=== PATIENT | female | born 1990 | race Caucasian/White ===

== ENCOUNTER 2021-08-08 21:03 | Emergency (ER) | payer SELFPAY ==
[2021-08-08 21:04] VITALS: BP 218/120; PULSE 85; RESP 18; TEMP 36.8; O2SAT 97; BMI 28.9
[2021-08-08 21:42] VITALS: BP 168/133; PULSE 94; RESP 17; TEMP 37.1; O2SAT 98
--- NOTE | 2021-08-08 22:09 | CT_ITS ---
EXAM: CT ABDOMEN AND PELVIS WITHOUT INTRAVENOUS CONTRAST CLINICAL INDICATION: Right flank pain TECHNIQUE: Helically acquired images were obtained of the abdomen and pelvis without intravenous contrast. This CT exam was performed using one or more of the following dose reduction techniques: automated exposure control, adjustment of the mA and/or kV according to patient size, and/or use of iterative reconstruction technique. This report was created using [employer] report generation technology. COMPARISON: None. FINDINGS: LOWER THORAX: Unremarkable. Lung bases are clear. No cardiomegaly. No significant pericardial effusion. ABDOMEN: LIVER: Unremarkable. Homogeneous. GALLBLADDER AND BILE DUCTS: Unremarkable. No calcified gallstones. No gallbladder distention or wall edema. No intra- or extrahepatic biliary ductal dilation. PANCREAS: Unremarkable. No focal cystic mass. SPLEEN: Unremarkable. Normal size without focal cystic or solid mass. ADRENALS: Unremarkable. No nodules. KIDNEYS AND URETERS: Moderate right hydronephrosis and perinephric stranding hydroureter. Calculus of anterior renal calyceal infundibulum measures up to 1.3 cm. Normal renal size and position. STOMACH AND BOWEL: Unremarkable. No stomach or bowel distention. No focal inflammatory change. PELVIS: APPENDIX: No evidence of acute appendicitis. BLADDER: Urinary bladder is not well-distended, bladder wall thickening cannot be excluded. REPRODUCTIVE: Unremarkable as visualized. No mass. ABDOMEN and PELVIS: INTRAPERITONEAL SPACE: Unremarkable. No ascites or other fluid collection. No free air. BONES/JOINTS: Unremarkable. No suspicious lytic or blastic abnormality. SOFT TISSUES: Unremarkable. No discrete abdominal or pelvic wall hernia. VASCULATURE: Unremarkable. Abdominal aorta is non-dilated. LYMPH NODES: Unremarkable. No enlarged lymph nodes. CT/Abdomen/Pelvis without Cont IMPRESSION: Moderate right hydronephrosis and perinephric stranding hydroureter. No ureteral calculi seen. May represent a passed calculus versus urinary tract infection. Electronically Signed: Abel Mora MD ([place]) at 23:12 EST , Service support ,
[2021-08-08 22:20] LABS: Absolute Neutrophil Count 8.1 X10^3/uL (2.0-7.7); Basophil# 0.06 X10^3/uL; Basophil% 0.6 % (0-1); Eosinophil# 0.03 X10^3/uL; Eosinophils% 0.3 % (0-5); Hematocrit 43.3 % (37-47); Hemoglobin 14.4 g/dL (12.0-15.0); Lymphocyte % 12.1 % (19-41); Mean Corp Hgb Conc 33.3 g/dL (32-36); Mean Corpuscular Hgb 30.4 pg (27.0-32.0); Mean Corpuscular Volume 91.4 fL (81-99); Mean Platelet Vol. 9.1 fl (6.2-12.0); Monocyte# 0.51 X10^3/uL; Monocyte% 5.2 % (0-10); NRBC Flagged by Analyzer 0 % (0-5); Neutrophil # 8.06 X10^3/uL (2.7-7.7); Neutrophil % 81.6 % (47-70); Platelet Count 384 K/mm3 (150-450); RBC Distribution Width CV 11.5 % (11.6-14.6); RBC Distribution Width SD 38.9 fl (35.1-43.9); Red Blood Count 4.74 M/mm3 (4.2-5.4); White Blood Count 9.9 K/mm3 (4.4-11.0)
[2021-08-08 22:35] LABS: ALB/GLOB Ratio 0.9 RATIO (0.9-2.4); AST(SGOT) 18 U/L (15-37); Alanine Aminotransfer ALT/SGPT 25 U/L (13-56); Albumin, Serum 4.3 g/dL (3.2-5.0); Alkaline Phosphatase 84 U/L (45-117); Anion Gap 11 (5-15); BUN 15 mg/dL (7-18); Calcium,Total 9.7 mg/dL (8.5-10.1); Chloride 100 mmol/L (98-107); EST Glomerular Filtration Rate 68 mL/min (>60); Est Glom Filt Rate - Afr Amer 83 mL/min (>60); Estimated Creatinine Clearance 60.95 ml/min; Glucose 108 mg/dL (74-106); Potassium 3.3 mmol/L (3.5-5.1); Protein, Total 9.3 g/dL (6.4-8.2); Sodium Level 138 mmol/L (136-145)
[2021-08-08] MEDS: Morphine 4 MG/ML Syringe IV (22:47)
[2021-08-08] MEDS: 0.9% Normal Saline 1,000 ML 1000 ML IV (22:47)
[2021-08-08] MEDS: Ondansetron 4 MG/2 ML Vial IV (22:47)
[2021-08-08 22:48] VITALS: BP 200/108; PULSE 96; RESP 17; TEMP 36.8; O2SAT 99
[2021-08-08 23:32] LABS: Mucous, Urine 0 SEEN /hpf (<or=2+); White Blood Cells 0 SEEN /hpf (0-5)
[2021-08-08 23:39] LABS: Color, Urine Yellow (Yellow); Glucose, Dipstick 100 mg/dl (Normal); Ketone-Dipstick 15 mg/dl (Negative); Leukocyte Esterase-Dipstick Negative /ul (Negative); Nitrite-Dipstick Positive (Negative); Occult Blood-Urine 250 /ul (Negative); Protein-Dipstick 30 mg/dl (Negative); Urine Bilirubin Dipstick Negative (Negative); Urine Clarity Clear (Clear); Urine Urobilinogen Normal (Normal)
[2021-08-08 23:41] VITALS: BP 165/100; PULSE 78; RESP 17; TEMP 36.9; O2SAT 98
[2021-08-08 23:58] LABS: Amorphous Sediment 2+; Bacteria 1+ /hpf (None Seen); Hyaline Cast 0-5 SEEN /lpf (0-5); Red Blood Cells-Urine 5-10 SEEN /hpf (0-5); Squamous Epithelial Cells - UA 0-5 SEEN /hpf (5-10)
--- NOTE | 2021-08-09 00:11 | EDS_ITS ---
HPI HPI - GI History of Present Illness Chief Complaint: Abd Pain Informant: patient Abdominal Pain/Flank Pain Onset: Today and Hours (2) Context: Sudden Onset Timing: Continuous Quality: Aching and Stabbing Location: RUQ, RLQ and Right Flank Worsened by: Nothing Relieved by: Nothing Nausea/Vomiting/Emesis GI Symptom: Positive for Nausea; Negative for Vomiting Diarrhea/Melena/Hematochezia GI Symptom: Negative for Diarrhea, Melena and Hematochezia Associated Symptoms Associated Symptoms: Negative for Dysuria and Hematuria Narrative Narrative: Patient presents with right-sided abdominal pain that began approximately 2 hours prior to arrival. Patient states it began rather suddenly. Patient states it is over the right side of her abdomen and right flank area. Patient describes as aching and stabbing. Patient admits to some nausea but denies any vomiting. Patient denies any diarrhea, melena, or hematochezia. Patient denies any dysuria or hematuria. Patient states nothing makes it better nothing makes it worse. Patient is unable to find a position of comfort. Patient states her father and sister have a history of kidney stones. Patient denies any prior history of kidney stones herself. PFSH PFSH Medical History no medical history no medical history Home Medications hydrocodone-acetaminophen 1 tab PO Q6H PRN PRN 3 Days #10 tablet 08/09/21 [Rx Last Taken Unknown] ondansetron 4 mg PO Q8H PRN PRN #10 tab 08/09/21 [Rx Last Taken Unknown] Allergy/AdvReac Type Severity Reaction Status Date / Time bee pollen Allergy Swelling Verified 08/08/21 21:06 bee venom protein (honey bee) Allergy Swelling Verified 08/08/21 21:06 Surgical History no surgical history no surgical history Social History Smoking Status: Light Smoker (<10/day) ROS ROS ED Constitutional Constitutional ED: Denies chills or fever(s) Eyes Eyes: Denies blurry vision or change in vision ENT ENT ED: Denies rhinorrhea or sore throat Cardiovascular Cardiovascular: Denies chest pain or palpitations Respiratory/Chest Respiratory/Chest: Reports cough; Denies dyspnea Gastrointestinal Gastrointestinal: Reports abdominal pain and nausea; Denies vomiting Genitourinary Genitourinary ED: Denies dysuria or hematuria Musculoskeletal Musculoskeletal: Reports back pain; Denies neck pain Integumentary Denies abscess or rash Neurologic Neurologic: Denies headache(s) or weakness Allergic/Immunologic Allergic/Immunologic ED: Denies mouth swelling or urticaria EXAM Physical Exam Const Vital Signs: 08/08/21 21:04 08/08/21 21:42 08/08/21 22:48 Temperature 98.2 F 98.7 F 98.2 F Temperature Source Temporal Temporal Temporal Pulse Rate 85 94 96 Respiratory Rate 18 17 17 Blood Pressure 218/120 H 168/133 H 200/108 H Blood Pressure Mean 152 144 138 Pulse Ox 97 98 99 Oxygen Delivery Method Room Air Room Air Room Air 08/08/21 23:41 Temperature 98.4 F Temperature Source Temporal Pulse Rate 78 Respiratory Rate 17 Blood Pressure 165/100 H Blood Pressure Mean 121 Pulse Ox 98 Oxygen Delivery Method Room Air Positive well nourished and well developed General Appearance ED: well developed HEENT Reports moist mucous membranes Neck supple and no JVD Resp normal respiratory effort and clear to auscultation bilaterally Cardio regular rate, regular rhythm and no murmurs GI normal to inspection, nondistended, normoactive bowel sounds Auscultation: normoactive bowel sounds Palpation: soft and tender RLQ and RUQ; Negative for guarding or rebound tenderness present Back/Spine General Back: CVA tenderness right Extremity normal to inspection General Extremety ED: Negative for edema or tenderness General Extremity: Negative for edema Neuro oriented x3, CN's II-XII intact bilaterally and no sensory deficits noted Sensorium / Orientation: alert Motor Exam: strength 5/5 throughout Psych mental status grossly normal Skin no rashes or lesions noted MDM MDM MDM Narrative Medical decision making narrative: Patient was given IV fluids, morphine, and Zofran here. CBC was within normal limits. Comprehensive metabolic profile was essentially within normal limits. Urinalysis shows negative leukocyte esterase with 0 white blood cells. Nitrates were positive. There is 1+ bacteria. There are 0-5 epithelial cells. There is 2+ amorphous sediment. Urine culture was ordered. CT scan of the abdomen pelvis was obtained. There is right-sided hydronephrosis and hydroureter. There is perinephric stranding. However, there is no stone visualized. This may represent a recently passed stone. Patient was advised of her findings. Patient is feeling better on reevaluation. Patient stated she did have one episode of vomiting here in the emergency department but feels better now. Patient was given prescriptions for [place] and Zofran. Patient was instructed to follow-up with her primary care physician in 5 to 7 days. Patient understood and was agreeable with the plan. All questions were answered. Lab Data Attestation: I reviewed the patient's lab results. Labs: Laboratory Results - last 24 hr 08/08/21 08/08/21 08/08/21 21:28 21:37 21:37 WBC 9.9 RBC 4.74 Hgb 14.4 Hct 43.3 MCV 91.4 MCH 30.4 MCHC 33.3 RDW Std Deviation 38.9 RDW Coeff of Anna 11.5 L Plt Count 384 MPV 9.1 Immature Gran % (Auto) 0.200 Neut % (Auto) 81.6 H Lymph % (Auto) 12.1 L [place] % (Auto) 5.2 Eos % (Auto) 0.3 Baso % (Auto) 0.6 Absolute Neuts (auto) 8.1 H Absolute Lymphs (auto) 1.20 Nucleated RBC % 0 Sodium 138 Potassium 3.3 L Chloride 100 Carbon Dioxide 27.0 Anion Gap 11 BUN 15 Creatinine 1.00 Estim Creat Clear Calc 60.95 Est GFR (MDRD) Af Amer 83 Est GFR (MDRD) Non-Af 68 BUN/Creatinine Ratio 15.0 Glucose 108 H Calcium 9.7 Total Bilirubin 0.70 AST 18 ALT 25 Alkaline Phosphatase 84 Total Protein 9.3 H Albumin 4.3 Globulin 5.0 H Albumin/Globulin Ratio 0.9 Urine Color Yellow Urine Clarity Clear Urine pH 7.0 Ur Specific [place] 1.010 Urine Protein 30 H Urine Glucose (UA) 100 H Urine Ketones 15 H Urine Occult Blood 250 H Urine Nitrite Positive H Urine Bilirubin Negative Urine Urobilinogen Normal Ur Leukocyte Esterase Negative Urine RBC 5-10 SEEN Urine WBC 0 SEEN Ur Squamous Epith Cells 0-5 SEEN Amorphous Sediment 2+ Urine Bacteria 1+ Hyaline Casts 0-5 SEEN Urine Mucus 0 SEEN Radiography Diagnostic Testing: Clinical Impression(s) from Imaging Studies Abdomen/Pelvis CT 08/08/21 22:09 IMPRESSION: Moderate right hydronephrosis and perinephric stranding hydroureter. No ureteral calculi seen. May represent a passed calculus versus urinary tract infection. Electronically Signed: Abel Mora MD ([place]) at 23:12 EST , Service support , Discharge Plan Triage Chief Complaint: Abd Pain ED Provider: Christ Merchant Dx/Rx/DC Orders Clinical Impression: Renal colic on right side Instructions: ED Kidney Stone w/ Colic Prescriptions: New hydrocodone-acetaminophen [hydrocodone-acetaminophen] 1 TABLET tablet 1 tab PO Q6H PRN PRN (Reason: Pain) 3 Days Qty: 10 RF: 0 ondansetron [ondansetron] 4 MG tablet 4 mg PO Q8H PRN PRN (Reason: Nausea) Qty: 10 RF: 0 Primary Care Provider: Care Physician,No Primary Referrals: Ethan Monroy MD [STAFF PHYSICIAN] - 3-5 Days Care Physician,No Primary [Primary Care Provider] - Disposition Disposition: Home, Self Care
[2021-08-09 00:41] VITALS: PULSE 74; RESP 16; O2SAT 98
== END 2021-08-09 00:45 | disposition home or self-care (01) ==
PROVIDERS: Emergency Provider Emergency Medicine
DX: N23 Unspecified renal colic (principal); F17.200 Nicotine dependence, unspecified, uncomplicated
CPT/HCPCS: 74176; 80053; 81001; 85025; 96374; 96375; 99284; J7030; A4216; J2405

== ENCOUNTER 2023-05-21 06:04 | Emergency (ER) | payer OTHER, SELFPAY ==
[2023-05-21 06:05] VITALS: BP 143/98; PULSE 60; RESP 15; TEMP 36.5; O2SAT 99; BMI 24.0
--- NOTE | 2023-05-21 06:47 | CT_ITS ---
EXAM: CT Abdomen And Pelvis W/O Contrast Injection HISTORY: right flank pain TECHNIQUE: Routine protocol CT abdomen and pelvis. IV Contrast: None.. Oral contrast: None. RADIATION DOSAGE (If Supplied By Facility): CTDIvol = ( 6.08 ) mGy, DLP = ( 284.07 ) mGycm Individualized dose optimization techniques were used for this CT. COMPARISON: CT abdomen and pelvis 08/08/2021. LIMITATIONS: None. FINDINGS: LOWER CHEST: Included lung bases are clear. LIVER: Grossly unremarkable. GALLBLADDER AND BILIARY TREE: Grossly unremarkable. PANCREAS: Grossly unremarkable. SPLEEN: Grossly unremarkable. ADRENAL GLANDS: Grossly unremarkable. KIDNEYS AND URETERS: There is a 12 x 11 mm calculus in the right renal pelvis at the ureteropelvic junction with mild right hydronephrosis. Smaller calculus in the left kidney. No hydronephrosis on the left PERITONEUM: No free air. No free fluid. BOWEL: Scattered diverticula throughout the colon. No bowel obstruction. APPENDIX: Visualized and unremarkable. No evidence of acute appendicitis. VESSELS: Abdominal aorta is normal caliber. REPRODUCTIVE ORGANS: Grossly unremarkable URINARY BLADDER: Grossly unremarkable. ABDOMINAL WALL: Unremarkable. BONES: No acute abnormalities. CT/Abdomen/Pelvis without Cont IMPRESSION: Large 12 mm calculus in the right renal pelvis at the ureteropelvic junction with mild right hydronephrosis. Left nephrolithiasis without hydronephrosis. Electronically Signed: Nanette Nolen MD at 8:06 EDT ,
[2023-05-21 06:57] LABS: Absolute Lymphocyte Count 2.19 X10^3/uL (0.83-4.51); Absolute Neutrophil Count 4.9 X10^3/uL (2.0-7.7); Basophil# 0.08 X10^3/uL; Eosinophil# 0.17 X10^3/uL; Eosinophils% 2.1 % (0-5); Hematocrit 37.8 % (37-47); Hemoglobin 12.3 g/dL (12.0-15.0); Lymphocyte # 2.19 X10^3/ul (0.83-4.51); Lymphocyte % 26.8 % (19-41); Mean Corp Hgb Conc 32.5 g/dL (32-36); Mean Corpuscular Hgb 29.7 pg (27.0-32.0); Mean Corpuscular Volume 91.3 fL (81-99); Mean Platelet Vol. 9.3 fl (6.2-12.0); Monocyte# 0.79 X10^3/uL; Monocyte% 9.7 % (0-10); NRBC Flagged by Analyzer 0 % (0-5); Neutrophil # 4.91 X10^3/uL (2.7-7.7); Platelet Count 318 K/mm3 (150-450); RBC Distribution Width CV 13.2 % (11.6-14.6); RBC Distribution Width SD 44.6 fl (35.1-43.9); Red Blood Count 4.14 M/mm3 (4.2-5.4); White Blood Count 8.2 K/mm3 (4.4-11.0)
[2023-05-21] MEDS: 0.9% Normal Saline (1000mL) 1,000 ML 999 ML IV (06:57)
[2023-05-21] MEDS: Ketorolac 30 MG/ML Syringe IV (06:58)
[2023-05-21 07:03] LABS: Mucous, Urine 0 SEEN /hpf (<or=2+); Squamous Epithelial Cells - UA 0 SEEN /hpf (5-10)
[2023-05-21 07:05] LABS: Color, Urine Red (Yellow); Glucose, Dipstick Normal (Normal); Ketone-Dipstick 5 mg/dl (Negative); Leukocyte Esterase-Dipstick 500 /ul (Negative); Nitrite-Dipstick Positive (Negative); Occult Blood-Urine 250 /ul (Negative); Protein-Dipstick 100 mg/dl (Negative); Specific Gravity, Urine 1.015 (1.002-1.030); Urine Bilirubin Dipstick Negative (Negative); Urine Clarity Turbid (Clear); Urine Urobilinogen 1 mg/dl (Normal)
[2023-05-21 07:07] LABS: Internal QC Validated? YES +Cl - CLEAR BKGD; Pregnancy, Urine Negative Negative
[2023-05-21 07:12] LABS: Amorphous Sediment 2+; Bacteria 3+ /hpf (None Seen); Red Blood Cells-Urine > 100 SEEN /hpf (0-5); White Blood Cells 10-25 SEEN /hpf (0-5)
[2023-05-21 07:14] LABS: AST(SGOT) 14 U/L (15-37); Alanine Aminotransfer ALT/SGPT 19 U/L (13-56); Albumin, Serum 3.6 g/dL (3.2-5.0); Alkaline Phosphatase 47 U/L (45-117); Anion Gap 4 (5-15); BUN 16 mg/dL (7-18); BUN/Creat Ratio 16.4 RATIO (10-20); Bilirubin, Direct 0.23 mg/dL (0.00-0.30); Calcium,Total 8.9 mg/dL (8.5-10.1); Chloride 104 mmol/L (98-107); Creatinine, Serum 0.98 mg/dL (0.55-1.02); EST Glomerular Filtration Rate 70 mL/min (>60); Est Glom Filt Rate - Afr Amer 84 mL/min (>60); Estimated Creatinine Clearance 61.61 ml/min; Glucose 124 mg/dL (74-106); Potassium 3.5 mmol/L (3.5-5.1); Protein, Total 7.6 g/dL (6.4-8.2); Sodium Level 138 mmol/L (136-145)
--- NOTE | 2023-05-21 08:33 | EX.ED.DYSGE1 ---
HPI History of Present Illness Chief Complaint: Flank Pain Informant: patient Narrative Narrative: Patient is a 32-year-old female who states she has had right-sided flank pain/abdominal pain for the last few hours. She states she has noticed some dark or bloody urine but denies any dysuria. She states she has concern for kidney stone based on her symptoms and as [id number] medication is not controlling pain she presents for evaluation [facility] Medical History (Updated 05/21/23 @ 08:[address] Sam Hemphill DO) Kidney stone Home Medications cephalexin 500 mg capsule 500 mg PO TID 7 days #21 caps 05/21/23 [Rx Last Taken Unknown] ketorolac 10 mg tablet 10 mg PO Q6H PRN pain 5 days #20 tabs 05/21/23 [Rx Last Taken Unknown] ondansetron 4 mg disintegrating tablet 4 mg PO TID PRN nausea and vomiting #21 tabs 05/21/23 [Rx Last Taken Unknown] oxycodone-acetaminophen 5 mg-325 mg tablet (Percocet) 1 tab PO Q6H PRN pain 3 days #12 tabs 05/21/23 [Rx Last Taken Unknown] tamsulosin 0.4 mg capsule (Flomax) 0.4 mg PO DAILY 14 days #14 caps 05/21/23 [Rx Last Taken Unknown] Allergy/AdvReac Type Severity Reaction Status Date / Time bee pollen Allergy Swelling Verified 05/21/23 06:12 bee venom protein (honey bee) Allergy Swelling Verified 05/21/23 06:12 Social History Smoking Status: Light Smoker (<10/day) [facility] ED Constitutional Constitutional ED: Denies chills or fever(s) ENT ENT ED: Denies sore throat Cardiovascular Cardiovascular: Denies chest pain Respiratory/Chest Respiratory/Chest: Denies cough or dyspnea Gastrointestinal Gastrointestinal: Reports abdominal pain and nausea; Denies diarrhea or vomiting Genitourinary Genitourinary ED: Reports hematuria; Denies dysuria Musculoskeletal Musculoskeletal: Reports back pain; Denies myalgias Integumentary Denies rash Neurologic Neurologic: Denies headache(s) Hematologic/Lymphatic Hematologic/Lymphatic: Denies easy bleeding or easy bruising EXAM Physical Exam Const Vital Signs: 05/21/23 06:05 Temperature 97.7 F L Temperature Source Temporal Pulse Rate 60 Respiratory Rate 15 Blood Pressure 143/98 H Blood Pressure Mean 113 Pulse Ox 99 Oxygen Delivery Method Room Air Positive well nourished and well developed General Appearance ED: well developed HEENT HEENT Narrative: Normocephalic atraumatic Eyes PERRL and EOMs intact bilaterally General Eye ED: Negative for scleral icterus Neck supple Resp normal respiratory effort and clear to auscultation bilaterally Cardio regular rate and regular rhythm Rate: other Other Details: Radial and carotid pulses are equal and symmetric GI non-distended GI Narrative: Abdomen is soft and nondistended with normal active bowel sounds. Patient has pain palpation along the right sided abdomen diffusely without voluntary guarding or rigidity. No pulsatile mass noted Auscultation: normoactive bowel sounds Palpation: soft Back/Spine Back/Spine Narrative: Positive right CVA pain present Extremity normal to inspection Neuro oriented x3 and CN's II-XII intact bilaterally Sensorium / Orientation: alert Psych mental status grossly normal Skin no rashes or lesions noted General Skin Exam: Negative for jaundice MDM MDM MDM Narrative Medical decision making narrative: Patient presented to the ER hypertensive but otherwise with stable vitals. History and exam is concerning for kidney stone. However differential diagnosis is for kidney stone versus pyelonephritis versus biliary colic versus pancreatitis versus lumbosacral strain. Laboratory studies showed no signs of urosepsis or acute kidney injury but urine sample did show changes consistent with infection and blood for potential stone. CT scan was obtained which did display kidney stone changes. The stone was very large at 12 mm and secondary to this large stone the case was discussed with urology. Urology agrees that at this time she is not uroseptic or having SOPHY and her pain is controlled and therefore she can be treated and discharged and follow-up on an outpatient basis. History & Record Review Discussion w/independent historian: Patient Lab Data Attestation: I reviewed the patient's lab results. Labs: Laboratory Results - last 24 hr 05/21/23 05/21/23 06:15 06:30 WBC 8.2 RBC 4.14 L Hgb 12.3 Hct 37.8 MCV 91.3 MCH 29.7 MCHC 32.5 RDW Std Deviation 44.6 H RDW Coeff of Anna 13.2 Plt Count 318 MPV 9.3 Immature Gran % (Auto) 0.400 Neut % (Auto) 60.0 Lymph % (Auto) 26.8 [place] % (Auto) 9.7 Eos % (Auto) 2.1 Baso % (Auto) 1.0 Absolute Neuts (auto) 4.9 Absolute Lymphs (auto) 2.19 Nucleated RBC % 0 Sodium 138 Potassium 3.5 Chloride 104 Carbon Dioxide 30.0 Anion Gap 4 L BUN 16 Creatinine 0.98 Estim Creat Clear Calc 61.61 Est GFR (MDRD) Af Amer 84 Est GFR (MDRD) Non-Af 70 BUN/Creatinine Ratio 16.4 Glucose 124 H Calcium 8.9 Total Bilirubin 0.40 Direct Bilirubin 0.23 AST 14 L ALT 19 Alkaline Phosphatase 47 Total Protein 7.6 Albumin 3.6 Globulin 4.0 Urine Color Red Urine Clarity Turbid Urine pH 7.0 Ur Specific [place] 1.015 Urine Protein 100 H Urine Glucose (UA) Normal Urine Ketones 5 H Urine Occult Blood 250 H Urine Nitrite Positive H Urine Bilirubin Negative Urine Urobilinogen 1 H Ur Leukocyte Esterase 500 H Urine RBC > 100 SEEN Urine WBC 10-25 SEEN Ur Squamous Epith Cells 0 SEEN Amorphous Sediment 2+ Urine Bacteria 3+ Urine Mucus 0 SEEN Urine Test Negative Radiography Diagnostic Testing: Clinical Impression(s) from Imaging Studies Abdomen/Pelvis CT 05/21/23 06:47 IMPRESSION: Large 12 mm calculus in the right renal pelvis at the ureteropelvic junction with mild right hydronephrosis. Left nephrolithiasis without hydronephrosis. Electronically Signed: Nanette Nolen MD at 8:06 EDT Reading Location ID and State: [facility] / [place] Tel , Service support , Discharge Plan Triage Chief Complaint: Flank Pain ED Provider: Sam Hemphill Dx/Rx/DC Orders Clinical Impression: UTI (urinary tract infection), Renal colic, Kidney stone on right side Instructions: ED Kidney Stone w/ Colic Prescriptions: New ketorolac 10 mg tablet 10 mg PO Q6H PRN (Reason: pain) 5 Days Qty: 20 0RF oxycodone-acetaminophen [Percocet] 5-325 mg tablet 1 tab PO Q6H PRN (Reason: pain) 3 Days Qty: 12 0RF ondansetron 4 mg tablet,disintegrating 4 mg PO TID PRN (Reason: nausea and vomiting) Qty: 21 0RF tamsulosin [Flomax] 0.4 mg capsule 0.4 mg PO DAILY 14 Days Qty: 14 0RF cephalexin 500 mg capsule 500 mg PO TID 7 Days Qty: 21 0RF Primary Care Provider: Care Physician,No Primary Referrals: Cayetano Nixon MD [Med Staff - Active Staff] - Care Physician,No Primary [Primary Care Provider] - Activity Restrictions/Additional Instructions: Please keep yourself well-hydrated and stay active. Call the urologist office on Tuesday to schedule an outpatient appointment. If you develop a fever over 100.4 or your pain is not controlled with the prescribed medications please return for repeat evaluation. Disposition Disposition: Home, Self Care Discharge Date/Time: 05/21/23 09:59
[2023-05-21] MEDS: Ceftriaxone 1 GM/50 ML BAG IV (08:44)
[2023-05-21 09:59] VITALS: RESP 16
== END 2023-05-21 09:59 | disposition home or self-care (01) ==
PROVIDERS: Emergency Provider Emergency Medicine; Visit Provider Emergency Medicine
DX: N13.6 Pyonephrosis (principal); N23 Unspecified renal colic; F17.200 Nicotine dependence, unspecified, uncomplicated
CPT/HCPCS: 74176; 80048; 80076; 81001; 81025; 85025; 87086; 87088; 87186; 96365; 96375; 99283; J7030

== ENCOUNTER 2023-07-13 05:46 | Day surgery (SDC) | payer SELFPAY ==
[2023-07-13 06:14] VITALS: BP 147/92; PULSE 66; RESP 18; TEMP 37.1; O2SAT 100; BMI 24.1
[2023-07-13 06:19] LABS: Internal QC Validated? YES +Cl - CLEAR BKGD; Pregnancy, Urine Negative Negative
[2023-07-13] MEDS: Lactated Ringers 1,000 ML 15 ML IV (06:21)
--- NOTE | 2023-07-13 07:13 | PCM.HP.STD ---
HPI - General General Date of Service: 07/13/23 Chief Complaint: Right large kidney stone HPI Narrative MANUEL SALMERON, is a 33 female who presents to the hospital to laser an obstructing stone in the right kidney to the right renal pelvis presented in the emergency room several times with severe pain so organ to proceed with laser of the stone and stent placement PFSH Medical History Easy bruising Electronic cigarette use Kidney stone Smoker Allergy/AdvReac Type Severity Reaction Status Date / Time bee pollen Allergy Swelling Verified 07/13/23 06:09 bee venom protein (honey bee) Allergy Swelling Verified 07/13/23 06:09 Social History Smoking Status: Light Smoker (<10/day) Vital Signs Vital Signs Vital Signs: 07/13/23 06:14 07/13/23 06:14 Temperature 98.7 F Temperature Source Temporal Pulse Rate 66 Respiratory Rate 18 Respiratory Pattern Normal Blood Pressure 147/92 H Blood Pressure Mean 110 Blood Pressure Source Monitor Blood Pressure Position Semi-Fowlers Blood Pressure Location Left Arm Pulse Ox 100 Oxygen Delivery Method Room Air Weight Weight: 58 kg Body Mass Index (BMI) 24.1 Results Lab / Micro Data Labs: Laboratory Results - last 24 hr 07/13/23 06:00: Urine Test Negative
--- NOTE | 2023-07-13 07:18 | DCINST_ITS ---
Discharge Instructions Diet Discharge Diet: No restrictions Activity Discharge Activity: Return to Normal Activity and May Not Drive (while taking narcotic pain medications.) Dressing / Incision Call your doctor if you observe: Fever of 101 or Higher Follow Up Care Please Follow Up With: Cayetano Nixon MD When: Call [phone] for an appointment Test Results: Test results from this visit will be discussed in further detail at your follow- up appointment, if applicable. Discharge Plan Admission Primary Reason for Your Visit: Large right kidney stone Attending Provider: Cayetano Nixon Primary Care Provider: Care Physician,[place] Primary Discharge Orders/Prescriptions Prescriptions: New ciprofloxacin HCl [Cipro] 500 mg tablet 500 mg PO BID Qty: 10 0RF tamsulosin [Flomax] 0.4 mg capsule 0.4 mg PO DAILY Qty: 20 0RF phenazopyridine [Pyridium] 100 mg tablet 100 mg PO BID PRN (Reason: pain) Qty: 14 0RF oxycodone 5 mg tablet 5 mg PO Q6H PRN (Reason: pain) 7 Days Qty: 20 0RF Referrals / Follow Up: Cayetano Nixon MD [Med Staff - Active Staff] - Care Physician,No Primary [Primary Care Provider] -
[2023-07-13] MEDS: Cefazolin 2 GM in 0.9% Normal Saline (100mL Bag) 100 ML IV (07:29)
--- NOTE | 2023-07-13 09:40 | OP.PCM_ITS ---
Report of Operation Date of Procedure: 07/13/23 Pre-Operative Diagnosis: Right large renal calculi Post-Operative Diagnosis: The same Surgery/Procedure Performed:: Cystoscopy, right retrograde pyelogram, interpretation fluoroscopic images, balloon dilation of the right ureter, right ureteroscopy laser lithotripsy of stone and right stent placement Description of Surgical Findings:: Patient was taken back to the operating room at a smooth induction of anesthesia she was placed in dorsolithotomy position. The urethrovaginal area prepped and draped in usual sterile fashion. Went into the bladder with a 21 [place] rigid cystourethroscope I first had to dilate the meatus from 16 [place] to 22 [place] after this I got into the bladder and identified the right ureteral orifice put a wire of the ureter all the way to the kidney and then over the wire advanced a 12 [place] 10 cm balloon dilator and balloon dilated the distal ureter after this and then I placed a second wire which was our safety wire, I then performed a retrograde pyelogram with contrast to delineate the anatomy and identify the stone in the renal pelvis retrograde was done I can see contrast going up the ureter surrounding the stone and identify the anatomy. And then over the working wire went in with a 7 [place] Olympus flexible ureteroscope I then reached a stone that was in the renal pelvis that was causing obstruction of the renal pelvis and then I used a 270 ?m laser fiber and started lasering the stone slowly from the edges working her way to the middle the stone this is a very large stone and it took an extensive amount of time to laser laser time was probably over an hour and a half to laser this stone down into finally tiny little pieces as a laser the stone the stone migrated as a got smaller and migrated up to the upper pole we did place the patient in Trendelenburg headdown and at the end of the case I had lasered the stone completely I did not see any major fragments we irrigated the upper pole midpole density and the major fragments and then worked my way down the ureter we put a wire back up into the kidney remove the safety wire and then over the wire I backloaded the stent and then placed a stent on the right side of the 6 [place] by 26 cm stent. We will leave the stent in for 2 weeks since was such a large stone many many fragments agraffe the past and I will see her in 2 weeks for cystoscopy stent removal she will be sent home with some Pyridium, Cipro, Flomax, and pain medicine. Patient was extubated taken back to PACU in stable condition I went spoke to her family Surgeon: Cayetano Nixon Type of Anesthesia: General Drains: 6 fr 26 cm Estimated Blood Loss (mL): 0 Admit VTE Documentation VTE Present on Admission: No VTE Mechan Device Prophylaxis: SCD's VTE Pharm Prophylaxis ordered?: No
[2023-07-13 09:45] VITALS: BP 147/92; BP 180/118; PULSE 104; RESP 16; TEMP 36.3; O2SAT 96
[2023-07-13 10:00] VITALS: BP 147/92; BP 160/103; PULSE 88; RESP 16; O2SAT 98
[2023-07-13 10:15] VITALS: BP 147/92; BP 163/97; PULSE 79; RESP 16; TEMP 36.3; O2SAT 99
[2023-07-13 10:33] VITALS: BP 147/92
== END 2023-07-13 10:49 | disposition home or self-care (01) ==
LOC: SDC 05:49 → AC 05:50
PROVIDERS: Anesthesiology; Referring Provider Urology; Visit Provider Urology
PROC: 0TJ98ZZ Inspection of Ureter, Via Natural or Artificial Opening Endoscopic (ICD-10-PCS; CPT 52352; principal; 2023-07-13 07:20)
DX: N20.0 Calculus of kidney (principal); F17.200 Nicotine dependence, unspecified, uncomplicated
CPT/HCPCS: 52356; 00873; 76000; 81025; J7120; C1769; C2617; J2405